=== PATIENT | female | born 1965 | race Caucasian/White ===

== ENCOUNTER 2017-04-10 18:40 | Emergency (ER) | payer MEDICAID, OTHER ==
[~2017-04-10] VITALS: Ht 172.7 cm; Wt 80.0 kg
[2017-04-10 19:01] VITALS: BP 136/85
== END 2017-04-10 22:26 | disposition home or self-care (01) ==
LOC: ED 22:00
DX: G89.11 Acute pain due to trauma (principal); M25.551 Pain in right hip; W01.0XXA Fall on same level from slipping, tripping and stumbling without subsequent striking against object, initial encounter; Y93.89 Activity, other specified; Y99.8 Other external cause status; Y92.009 Unspecified place in unspecified non-institutional (private) residence as the place of occurrence of the external cause
CPT/HCPCS: 72110; 99284

== ENCOUNTER 2017-12-21 19:03 | Emergency (ER) | payer MEDICAID ==
[~2017-12-21] VITALS: Ht 170.2 cm; Wt 87.4 kg
[2017-12-21 19:09] VITALS: BP 137/87
[2017-12-21] MEDS ORDERED: IBUPROFEN 200 MG TABLET ONE (19:56)
[2017-12-21] MEDS ORDERED: IBUPROFEN 200 MG TABLET PO ONE (20:30)
== END 2017-12-21 20:43 | disposition home or self-care (01) ==
LOC: ED 20:22
DX: M25.551 Pain in right hip (principal); M54.5 Low back pain; R20.0 Anesthesia of skin
CPT/HCPCS: 72110; 99284